=== PATIENT | male | born 1965 | race Caucasian/White ===

== ENCOUNTER → 2016-11-12 | Outpatient (CLI) | payer OTHER ==
--- NOTE | 2016-11-13 09:31 | ECHOF ---
Referral Reason:I10 htn MEASUREMENTS -------- HEIGHT: 162.6 cm WEIGHT: 111.1 kg BP: RVIDd: 3.1 cm (< 3.3) IVSd: 1.2 cm (0.6 - 1.1) LVIDd: 4.4 cm (3.9 - 5.3) LVPWd: 1.3 cm (0.6 - 1.1) IVSs: 1.5 cm LVIDs: 3.4 cm LVPWs: 1.6 cm Ao Diam: 4.1 cm (2.0 - 3.7) AV Cusp: 2.2 cm (1.5 - 2.6) LA Diam: 3.4 cm (2.7 - 3.8) MV EXCURSION: 19.197 mm (> 18.000) MV EF SLOPE: 109 mm/s (70 - 150) EPSS: 0.2 cm MV E Brian: 0.43 m/s MV DecT: 274 ms MV A Brian: 0.58 m/s MV E/A Ratio: 0.74 RAP: 5.00 mmHg RVSP: 23.93 mmHg FINDINGS -------- Sinus rhythm. This was a technically good study. There is mild concentric left ventricular hypertrophy. Overall left ventricular systolic function is low-normal with, an EF between 50 - 55 %. The right ventricle is normal in size. Normal LA size by volume 22+/-6 ml/m2. The right atrial size is normal. There is mild aortic valve sclerosis. There is no evidence of aortic regurgitation. Mild mitral annular calcification present. Mild mitral regurgitation is present. Mild tricuspid regurgitation present. Right ventricular systolic pressure is normal at < 35 mmHg. There is no evidence of pulmonary hypertension. There is no pulmonic regurgitation present. The aortic root size is normal. There is no pericardial effusion. CONCLUSIONS -------- 1. There is mild concentric left ventricular hypertrophy. 2. Overall left ventricular systolic function is low-normal with, an EF between 50 - 55 %. 3. There is mild aortic valve sclerosis. 4. Mild mitral annular calcification present. 5. Mild mitral regurgitation is present. 6. Mild tricuspid regurgitation present. 7. Right ventricular systolic pressure is normal at < 35 mmHg. 8. There is no evidence of pulmonary hypertension. UPHOLSTERY CUTTER: Danay Bateman RDCS
== END | disposition home or self-care (01) ==
LOC: RADECHMAIN 13:11
PROVIDERS: ATTEND Family Medicine
DX: I08.3 Combined rheumatic disorders of mitral, aortic and tricuspid valves (principal)
CPT/HCPCS: 93306

== ENCOUNTER 2021-09-03 12:08 | Emergency (ER) | payer BC, OTHER ==
[2021-09-03] MEDS ORDERED: SODIUM CHLORIDE 0.9% 1,000 ML IV STA ×2 (12:14→14:37)
--- NOTE | 2021-09-03 12:22 | ED ---
General Adult HPI - General Chief complaint: Dizziness Stated complaint: near syncope Source: patient, RN notes reviewed Mode of arrival: ambulatory - History of Present Illness Initial comments: 55-year-old male presents to the emergency department for evaluation of difficulty breathing and dizzines. Patient's symptoms began suddenly while seated at the bedside of his . Patient states he felt as if he couldn't catch his breath and became dizzy and lightheaded. Patient was able to ambulate to a cot with assistance. Denies chest pain or tightness. States his only past medical history is hypertension. Patient denies fever, chills, headache, chest pain, abdominal pain, nausea, vomiting, diarrhea, dysuria, or hematuria. - Related Data Home Medications Medication Instructions Recorded Confirmed Losartan/Hydrochlorothiazide 1 tab PO HS 09/03/21 09/03/21 [Losartan-Hctz 100-12.5 mg Tab] amLODIPine [Norvasc] 5 mg PO DAILY 09/03/21 09/03/21 Previous Rx's Medication Instructions Recorded Dexamethasone [Decadron] 6 mg PO DAILY #10 tablet 09/03/21 Allergies Allergy/AdvReac Type Severity Reaction Status Date / Time Penicillins Allergy Anaphylaxis Verified 09/03/21 12:47 Review of Systems ROS Statement: Those systems with pertinent positive or pertinent negative responses have been documented in the HPI. ROS Other: All systems not noted in ROS Statement are negative. Past Medical History Past Medical History: Hypertension Additional Past Surgical History / Comment(s): Back surg 1991 Smoking Status: Never smoker Past Alcohol Use History: None Reported Past Drug Use History: None Reported General Exam Limitations: no limitations General appearance: alert, anxious, other (Well-developed, well-nourished male who appears anxious at this time. Initial heart rate 118, respirations 24, blood pressure 96/70, pulse ox 99% on room air.) ENT exam: Present: normal exam, normal oropharynx, mucous membranes moist Respiratory exam: Present: normal lung sounds bilaterally, other (Patient is tachypneic with shallow breathing. ). Absent: respiratory distress, wheezes, rales, rhonchi, stridor Cardiovascular Exam: Present: normal rhythm, tachycardia GI/Abdominal exam: Present: soft, normal bowel sounds. Absent: distended, tenderness, guarding, rebound, rigid Neurological exam: Present: alert, oriented X3 Psychiatric exam: Present: anxious Skin exam: Present: warm, dry, intact, pallor Course Vital Signs 09/03/21 09/03/21 12:11 13:53 Temperature 97.9 F 100.4 F H Pulse Rate 118 H 108 H Respiratory 24 18 Rate Blood Pressure 96/70 122/78 O2 Sat by Pulse 99 98 Oximetry - Reevaluation(s) Reevaluation #1: 09/03/21 12:20 Patient was seated at the bedside of his spouse who was a patient in the emergency department when he suddenly became short of breath feeling like he couldn't catch his breath and became dizzy and lightheaded. He was assisted to a cot and was able to ambulate without weakness or unsteadiness. Patient was taken to a room, placed on continuous pulse ox. Oxygen saturation was 99% on room air, however patient is tachycardic with a heart rate in the 110s. Patient was coached to slow his breathing as he is tachypneic, tachycardic, and appears panicky. 09/03/21 13:41 Lab called with a critical d-dimer of 1.04. CT PE study ordered. Accounting for his mildly impaired renal function, patient will be given a reduced dose of IV contrast. 09/03/21 14:45 CT for PE was negative. Patient continues to rest comfortably without any evidence of difficulty breathing. He is no longer on oxygen via nasal cannula. Did discuss risks and benefits of monoclonal antibody infusion. He is agreeable to this plan. 09/03/21 16:30 Patient tolerated the infusion without difficulty. Resting comfortably in verbalizes readiness for discharge. Repeat set of vitals: temperature 99.3, respirations 18, heart rate 98, blood pressure 128/82, pulse ox 95% on room air. Medical Decision Making - Medical Decision Making This is a 55-year-old male who presents to the emergency department for evaluation of sudden onset difficulty breathing and dizziness. Upon exam, patient appears anxious and is tachypneic and tachycardic. Room air oxygen sat is 99%. Patient insists he has no chest pain, but was experiencing shortness of breath. Respirations were shallow and rapid. He did appear pale. IV was inserted and patient was given fluids. EKG was obtained and shows sinus rhythm. Laboratory studies were reviewed. Patient is mildly dehydrated with a sodium of 132 and chloride 95. BUN 27 and creatinine 1.34. Given 1 liter of IV fluids. D-dimer is elevated at 1.04. CT angiogram chest was obtained to rule out PE. PE study was negative, however does show patchy infiltrates compatible with pneumonia. Patient is found to be Covid +. Upon recheck of vitals, patient is found to be febrile therefore was given acetaminophen. Oxygen saturation is 94% or greater on room air. Patient is a candidate for the monoclonal antibody infusion. Risks and benefits were discussed. Patient is agreeable to infusion which she tolerated well. He will be discharged home to follow up with his primary care provider via telephone or video conference. Return parameters were discussed in detail. Patient verbalizes understanding and agrees with this plan. Patient's care was discussed with my attending Dr. Guerrero. - Lab Data Result diagrams: 09/03/21 12:47 09/03/21 12:47 Lab Results 09/03/21 09/03/21 09/03/21 Range/Units 12:47 12:47 12:47 WBC 4.1 (3.8-10.6) k/uL RBC 5.33 (4.30-5.90) m/uL Hgb 15.8 (13.0-17.5) gm/dL Hct 44.9 (39.0-53.0) % MCV 84.3 (80.0-100.0) fL MCH 29.6 (25.0-35.0) pg MCHC 35.1 (31.0-37.0) g/dL RDW 12.8 (11.5-15.5) % Plt Count 148 L (150-450) k/uL MPV 7.5 Neutrophils % 68 % Lymphocytes % 20 % Monocytes % 10 % Eosinophils % 0 % Basophils % 1 % Neutrophils # 2.8 (1.3-7.7) k/uL Lymphocytes # 0.8 L (1.0-4.8) k/uL Monocytes # 0.4 (0-1.0) k/uL Eosinophils # 0.0 (0-0.7) k/uL Basophils # 0.0 (0-0.2) k/uL D-Dimer (<0.60) mg/L FEU Sodium 132 L (137-145) mmol/L Potassium 3.9 (3.5-5.1) mmol/L Chloride 95 L (98-107) mmol/L Carbon Dioxide 25 (22-30) mmol/L Anion Gap 12 mmol/L BUN 27 H (9-20) mg/dL Creatinine 1.34 H (0.66-1.25) mg/dL Est GFR (CKD-EPI)AfAm 68 (>60 ml/min/1.73 sqM) Est GFR (CKD-EPI)NonAf 59 (>60 ml/min/1.73 sqM) Glucose 101 H (74-99) mg/dL Calcium 9.0 (8.4-10.2) mg/dL Total Bilirubin 0.6 (0.2-1.3) mg/dL AST 50 (17-59) U/L ALT 48 (4-49) U/L Alkaline Phosphatase 90 (38-126) U/L Troponin I <0.012 (0.000-0.034) ng/mL Total Protein 7.4 (6.3-8.2) g/dL Albumin 4.4 (3.5-5.0) g/dL Coronavirus (PCR) (Not Detectd) 09/03/21 09/03/21 Range/Units 12:47 12:54 WBC (3.8-10.6) k/uL RBC (4.30-5.90) m/uL Hgb (13.0-17.5) gm/dL Hct (39.0-53.0) % MCV (80.0-100.0) fL MCH (25.0-35.0) pg MCHC (31.0-37.0) g/dL RDW (11.5-15.5) % Plt Count (150-450) k/uL MPV Neutrophils % % Lymphocytes % % Monocytes % % Eosinophils % % Basophils % % Neutrophils # (1.3-7.7) k/uL Lymphocytes # (1.0-4.8) k/uL Monocytes # (0-1.0) k/uL Eosinophils # (0-0.7) k/uL Basophils # (0-0.2) k/uL D-Dimer 1.04 H (<0.60) mg/L FEU Sodium (137-145) mmol/L Potassium (3.5-5.1) mmol/L Chloride (98-107) mmol/L Carbon Dioxide (22-30) mmol/L Anion Gap mmol/L BUN (9-20) mg/dL Creatinine (0.66-1.25) mg/dL Est GFR (CKD-EPI)AfAm (>60 ml/min/1.73 sqM) Est GFR (CKD-EPI)NonAf (>60 ml/min/1.73 sqM) Glucose (74-99) mg/dL Calcium (8.4-10.2) mg/dL Total Bilirubin (0.2-1.3) mg/dL AST (17-59) U/L ALT (4-49) U/L Alkaline Phosphatase (38-126) U/L Troponin I (0.000-0.034) ng/mL Total Protein (6.3-8.2) g/dL Albumin (3.5-5.0) g/dL Coronavirus (PCR) Detected A (Not Detectd) - EKG Data EKG shows normal: sinus rhythm Rate: normal EKG Comments: EKG was obtained that 1229 and shows normal sinus rhythm. Ventricular rate 99, GA interval 158, QRS duration 106, QT/QTC 350/449. - Radiology Data Radiology results: report reviewed, image reviewed Two-view chest x-ray was obtained. Report was reviewed in its entirety i mpression Dr. Roberts is no acute pulmonary process. CT chest [place] for PE was obtained. Report was reviewed in its entirety. Impression per Dr. Patel is no evidence for pulmonary embolism at this time. Scanty patchy infiltrates compatible with pneumonia. Disposition Clinical Impression: Pneumonia due to COVID-19 virus, Fever, Dehydration Disposition: HOME SELF-CARE Condition: Stable Instructions (If sedation given, give patient instructions): Coronavirus Di 2018 (COVID-19) Additional Instructions: Alternate Tylenol and Motrin as needed for fever or discomfort. Increase intake of fluids. Take steroid as directed You should quarantine for 10 days from symptom onset Follow-up with your PCP via telephone or video visit in the next 24-48 hours. Return to the emergency department with any new, worsening, or concerning sympto ms. Prescriptions: Dexamethasone [Decadron] 6 mg PO DAILY #10 tablet Is patient prescribed a controlled substance at d/c from ED?: No Referrals: Mago Murphy MD [Primary Care Provider] - 1-2 days Time of Disposition: 16:45
--- NOTE | 2021-09-03 12:58 | XR ---
EXAMINATION TYPE: XR chest 2V DATE OF EXAM: 09/03/2021 COMPARISON: None INDICATION: Short of breath dizzy TECHNIQUE: Frontal and lateral views of the chest are obtained. FINDINGS: The heart size is normal. The pulmonary vasculature is normal. The lungs are clear. IMPRESSION: 1. No acute pulmonary process.
[2021-09-03 13:03] LABS: Basophils % (A) 1 %; Eosinophils % (A) 0 %; HCT 44.9 % (39.0-53.0); HGB 15.8 gm/dL (13.0-17.5); Lymphocytes # (A) 0.8 k/uL (1.0-4.8); Lymphocytes % (A) 20 %; MCH 29.6 pg (25.0-35.0); MCHC 35.1 g/dL (31.0-37.0); MCV 84.3 fL (80.0-100.0); Mean Platelet Volume 7.5; Monocytes # (A) 0.4 k/uL (0-1.0); Monocytes % (A) 10 %; Neutrophils # (A) 2.8 k/uL (1.3-7.7); Neutrophils % (A) 68 %; Platelet Count 148 k/uL (150-450); RBC 5.33 m/uL (4.30-5.90); RDW 12.8 % (11.5-15.5); WBC 4.1 k/uL (3.8-10.6)
[2021-09-03 13:24] LABS: Albumin 4.4 g/dL (3.5-5.0); Potassium 3.9 mmol/L (3.5-5.1); Total Bilirubin 0.6 mg/dL (0.2-1.3); Total Protein 7.4 g/dL (6.3-8.2)
[2021-09-03 13:55] VITALS: BP 122/78; PULSE 108; RESP 18; TEMP 100.4
[2021-09-03] MEDS ORDERED: ACETAMINOPHEN TAB 500 MG TAB PO STA (14:00)
--- NOTE | 2021-09-03 14:26 | CT ---
EXAMINATION TYPE: CT chest angio for PE DATE OF EXAM: 09/03/2021 COMPARISON: None HISTORY: Syncopal episode with sudden onset fever. CT DLP: 576.5 mGycm CONTRAST: CT chest with contrast and 3D reconstruction with MIP imaging is performed with IV Contrast, patient injected with 80 mL of Isovue 370. Contrast-enhanced CT of the chest was performed through the course of the pulmonary arteries with alicia g and mediastinal window settings submitted. 3D reconstruction with MIP imaging was also performed. PULMONARY ARTERIES: The pulmonary arteries and their major tributaries are patent. I do not see dada dence for sizable filling defect to suggest pulmonary embolic process. LUNGS: Scattered patchy infiltrates compatible with pneumonia. No evidence for atelectasis. No pulm onary nodule or mass is detected. No pleural effusion. MEDIASTINUM: Thoracic aorta is of normal caliber,however, evaluation is limited given timing of the contrast bolus. If there is concern for thoracic aortic pathology consider JILL. Correlate clinicall y . The heart is not enlarged. No evidence for mediastinal mass. No mediastinal lymph nodes greater than 1cm. HILAR STRUCTURES: No evidence for mass. No hilar lymph nodes greater than 1 cm. UPPER ABDOMEN: No significant abnormality is seen. IMPRESSION: 1. No evidence for Pulmonary embolism at this time. 2.Scattered patchy infiltrates compatible with pneumonia.
[2021-09-03] MEDS ORDERED: DEXAMETHASONE SOD PHOSPHATE 10 MG/ML 1 ML VIAL IVP STA (14:38)
[2021-09-03] MEDS ORDERED: CASIRIVIMAB (REGN10933) (EUA) 600 MG, IMDEVIMAB (REGN10987) (EUA) 600 MG in SODIUM CHLO... IVPB ONE (15:15)
[2021-09-03] MEDS ORDERED: SODIUM CHLORIDE 0.9% 50 ML IVPB ONE (15:15)
== END 2021-09-03 16:54 | disposition home or self-care (01) ==
LOC: EC 12:08
DX: U07.1 COVID-19 (principal); J12.82 Pneumonia due to coronavirus disease 2019; R50.9 Fever, unspecified; E86.0 Dehydration; I10 Essential (primary) hypertension; Z88.0 Allergy status to penicillin
CPT/HCPCS: 99285; 96374; 36415; 93005; 85379; 80053; 84484; 85025; 87635; 71046; 71275; J1100; Q9967; Q0243

== ENCOUNTER → 2022-02-04 | Outpatient (CLI) | payer BC, OTHER ==
--- NOTE | 2022-02-04 19:01 | US ---
EXAMINATION TYPE: US carotid duplex BILAT DATE OF EXAM: 02/04/2022 COMPARISON: NONE CLINICAL HISTORY: I10 HIGH BLOOD PRESSURE. High blood pressure. Prior smoker. EXAM MEASUREMENTS: RIGHT: Peak Systolic Velocity (PSV) cm/sec ----- Right CCA: 96.3 ----- Right ICA: 93.0 bulb measurement ----- Right ECA: 105.8 ICA/CCA ratio: 1.0 RIGHT: End Diastole cm/sec ----- Right CCA: 22.6 ----- Right ICA: 22.6 ----- Right ECA: 19.0 LEFT: Peak Systolic Velocity (PSV) cm/sec ----- Left CCA: 91.9 ----- Left ICA: 91.9 bulb measurement ----- Left ECA: 112.1 ICA/CCA ratio: 1.0 LEFT: End Diastole cm/sec ----- Left CCA: 25.9 ----- Left ICA: 30.3 ----- Left ECA: 21.5 VERTEBRALS (direction of flow): Right Vertebral: Antegrade Left Vertebral: Antegrade Rhythm: Normal Intimal thickening seen bilaterally. No elevated velocities at this time. Ratio includes bulb measure ments bilaterally- which were the higher velocities in comparison to the ICA velocities. Incidental finding: Isoechoic area seen within the mid left thyroid lobe: 2.0 x 1.6 x 1.6 cm. IMPRESSION: 1. No significant flow-limiting stenosis. 2. Mild intimal thickening through the carotid bifurcations. 3. Left thyroid nodule. Additional workup with thyroid ultrasound is recommended. Criteria for Assigning % of Stenosis / Diameter reduction (Estimation based on the indirect measurements of the internal carotid artery velocities (ICA PSV). 1. Normal (no stenosis)=ICA PSV < 125 cm/s: ratio < 2.0: ICA EDV<40 cm/s. 2. Less than 50% stenosis=ICA PSV < 125 cm/s: ratio < 2.0: ICA EDV<40 cm/s. 3. 50 to 69% stenosis=ICA PSV of 125 to 230 cm/s: ration 2.0 ? 4.0: ICA EDV 40-100 cm/s. 4. Greater than 70% stenosis to near occlusion= ICA PSV > 230 cm/s: ratio > 4.0: ICA EDV > 100 cm/s. 5. Near occlusion= ICA PSV velocities may be low or undetectable: variable ratio and ICA EDV. 6. Total occlusion=unable to detect flow.
--- NOTE | 2022-02-05 10:27 | CA ---
Transthoracic Echo Report Name: Pérez Snow Age: 56 Gender: M : 1965 Exam Date: 02/04/2022 16:05 Exam Location: [facility] Ht (in): 71 Wt (lb): 250 Ordering Physician: Mago Murphy MD Attending/Referring Phys: [employer] Driver Evelyn Beltran RDCS Procedure CPT: Indications: R91.1 SOLITARY PULMONARY NODULE Cardiac Hx: Technical Quality: Fair Contrast 1: Total Dose (mL): Contrast 2: Total Dose (mL): MEASUREMENTS (Male / Female) Normal Values 2D ECHO LV Diastolic Diameter PLAX 3.7 cm 4.2 - 5.9 / 3.9 - 5.3 cm LV Systolic Diameter PLAX 2.6 cm IVS Diastolic Thickness 1.4 cm 0.6 - 1.0 / 0.6 - 0.9 cm LVPW Diastolic Thickness 1.3 cm 0.6 - 1.0 / 0.6 - 0.9 cm LV Relative Wall Thickness 0.7 RV Internal Dim ED PLAX 3.2 cm LA Systolic Diameter LX 2.9 cm 3.0 - 4.0 / 2.7 - 3.8 cm LA Volume 40.6 cm??? 18 - 58 / 22 - 52 cm??? M-MODE Aortic Root Diameter MM 3.8 cm MV E Point Septal Separation 0.5 cm AV Cusp Separation MM 2.7 cm DOPPLER AV Peak Velocity 114.6 cm/s AV Peak Gradient 5.3 mmHg MV Area PHT 2.9 cm??? Mitral E Point Velocity 77.7 cm/s Mitral A Point Velocity 69.6 cm/s Mitral E to A Ratio 1.1 MV Deceleration Time 259.7 ms TR Peak Velocity 197.4 cm/s TR Peak Gradient 15.6 mmHg Right Ventricular Systolic Press 20.6 mmHg FINDINGS Left Ventricle Left ventricular ejection fraction is estimated at 60-65 %. Left ventricular cavity size normal. Moderate concentric left ventricular hypertrophy. Right Ventricle Normal right ventricular size and function. Right ventricular systolic pressure within normal limits. Right Atrium Normal right atrial size. Left Atrium Normal left atrial size. No evidence for an atrial septal defect. Mitral Valve Structurally normal mitral valve. No mitral stenosis, regurgitation or prolapse. Aortic Valve Trileaflet aortic valve. Trace aortic regurgitation. Tricuspid Valve Structurally normal tricuspid valve. Trace to mild tricuspid regurgitation. Pulmonic Valve Trace pulmonic regurgitation. Pericardium Normal pericardium. Aorta Mildly dilated aortic annulus. CONCLUSIONS Left ventricular hypertrophy with preserved LV systolic function Previewed by: Dr. Nicolas Alvaraod MD (Electronically Signed) Final Date: 05 Feb 2022 10:26
== END | disposition home or self-care (01) ==
LOC: RADUSWWP 15:16
PROVIDERS: ATTEND Family Medicine
DX: E04.1 Nontoxic single thyroid nodule (principal); I77.89 Other specified disorders of arteries and arterioles; I11.9 Hypertensive heart disease without heart failure; Z87.891 Personal history of nicotine dependence
CPT/HCPCS: 93306; 93880

== ENCOUNTER → 2022-02-24 | Outpatient (CLI) | payer BC ==
--- NOTE | 2022-02-25 16:12 | US ---
EXAMINATION TYPE: US thyroid st tissue head/neck DATE OF EXAM: 02/24/2022 COMPARISON: NONE CLINICAL HISTORY: E04.1 NONTOXIC SINGLE THYROID NODULE. thyroid nodules GLAND SIZE: Right Lobe: 5.5 x 1.5 x 2.3 Overall Parenchyma: homogenous Left Lobe: 5.1 x 1.9 x 1.9 Overall Parenchyma: homogeneous Isthmus Thickness: cm NODULES RIGHT: subcentimeter nodules seen. LEFT: # of nodules measured on left: 2 1. 2.1 1.3x 1.4cm mid mid, solid or almost completely solid, hypoechoic nodule, which is wider than tall, with smooth margins, without echogenic foci. Prior size: no prior 2. 1.0 .6 x 1.1cm lower , solid or almost completely solid, hypoechoic nodule, which is wider than tall, with smooth margins, without echogenic foci. Prior size: no prior ISTHMUS: # of nodules measured in the isthmus: 0 Bilateral neck scanned, no evidence of lymphadenopathy. IMPRESSION: 1. Moderately suspicious nodule left lobe thyroid, fine needle aspiration recommended. 2017 ACR TI-RADS LEVEL: TR-RADS 4 - Moderately Suspicious: Follow if > 1 cm, FNA if > 1.5 cm *Highest TI-RADS level nodule reported
== END | disposition home or self-care (01) ==
LOC: RADUSWWP 16:21
PROVIDERS: ATTEND Internal Medicine
DX: E04.2 Nontoxic multinodular goiter (principal)
CPT/HCPCS: 76536

== ENCOUNTER 2022-03-19 09:23 | Day surgery (SDC) | payer BC ==
[2022-03-19] MEDS ORDERED: ALPRAZolam 0.5 MG TAB PO PRN (09:49)
[2022-03-19 10:01] VITALS: RESP 16; TEMP 97.7
[2022-03-19 11:39] VITALS: BP 121/70; PULSE 88
--- NOTE | 2022-03-19 14:07 | US ---
EXAMINATION TYPE: US FNA thyroid first lesion DATE OF EXAM: 03/19/2022 COMPARISON: NONE HISTORY: Thyroid nodules in the left. Maximal barrier technique was utilized. After informed consent, skin overlying the midpole thyroid n odule was localized with ultrasound and the overlying skin prepped and draped. Ultrasound was utilize d using sterile technique. Lidocaine was used for local anesthesia. Five passes with a 25-gauge need le were made into the nodule and aspirated specimen was submitted to cytology. Using similar technique the smaller lower pole thyroid nodule was subsequently sampled, 5 passes with 25-gauge needle were made under ultrasound guidance, ultrasound technique. No immediate complication . Following the procedure hemostasis achieved. The patient discharged in stable condition. IMPRESSION: STATUS POST ULTRASOUND GUIDED FINE NEEDLE ASPIRATION OF 2 DISCRETE THYROID NODULES, PATHO LOGY IS PENDING. THIS PROCEDURE WAS PERFORMED BY THE UNDERSIGNED.
== END 2022-03-19 11:30 | disposition home or self-care (01) ==
LOC: RADPROMAIN 09:23
PROVIDERS: ATTEND Internal Medicine
DX: E04.1 Nontoxic single thyroid nodule (principal)
CPT/HCPCS: 10005; 10006; 88173; 88305

== ENCOUNTER 2023-07-09 07:16 | Day surgery (SDC) | payer OTHER ==
[~2023-07-09 07:16] MED LIST: LACTATED RINGERS 1,000 ML IV SCH; LIDOCAINE 1% (10MG/ML) FOR IV START INTRADERMA PRN
[2023-07-09 07:51] VITALS: RESP 16; TEMP 97.6
[2023-07-09] MEDS ORDERED: LIDOCAINE 1% INJ 10MG/ML (20 ML MDV) ONE (08:22)
[2023-07-09] MEDS ORDERED: PROPOFOL 10 MG/ML 20 ML VIAL IV ONE (08:22)
--- NOTE | 2023-07-09 08:37 | P.PCN ---
Date of Procedure: 07/09/23 Procedure(s) Performed: BRIEF HISTORY: Patient is a 57-year-old pleasant white male scheduled for an elective colonoscopy as a part of screening for colon cancer. PROCEDURE PERFORMED: Colonoscopy with biopsy. PREOPERATIVE DIAGNOSIS: Screening for colon cancer. IV sedation per Anesthesia. PROCEDURE: After informed consent was obtained, the patient, was brought into the endoscopy unit. IV sedation was administered by Anesthesia under continuous monitoring. Digital rectal examination was normal. Initially the Olympus CF-160 flexible video colonoscope was then inserted in the rectum, gradually advanced into the cecum without any difficulty. Careful examination was performed as the scope was gradually being withdrawn. Ileocecal valve and the appendiceal orifice were visualized and appeared normal. Prep was excellent. Mucosa of the cecum, normal. In the ascending colon there was a 2 mm polyp that was removed by cold biopsy. In the transverse colon there was a 3 mm polyp that was removed by cold biopsy. Rest of the ascending colon, transverse colon, descending colon, sigmoid colon, and rectum appeared normal. Retroflexion was performed in the rectum and grade 2 internal hemorrhoids were seen. The patient tolerated the procedure well. IMPRESSION: 2 mm ascending colon polyp status post cold biopsy 3 mm transverse colon polyp status post cold biopsy Grade 2 internal hemorrhoids RECOMMENDATIONS: Findings of this examination were discussed with the patient as well his family. He was advised to follow with the biopsy results. If the biopsy result adenoma he can have a repeat colonoscopy in 5 years..
[2023-07-09 09:18] VITALS: BP 131/80; PULSE 91
== END 2023-07-09 09:10 | disposition home or self-care (01) ==
LOC: ORWHC2ENDO 07:16
PROVIDERS: ATTEND Internal Medicine Gastroenterology
DX: Z12.11 Encounter for screening for malignant neoplasm of colon (principal); K64.1 Second degree hemorrhoids; D12.2 Benign neoplasm of ascending colon; I10 Essential (primary) hypertension; I51.7 Cardiomegaly; G47.33 Obstructive sleep apnea (adult) (pediatric); Z79.899 Other long term (current) drug therapy
CPT/HCPCS: 88305; 45380; J2001; J2704

== ENCOUNTER → 2023-12-29 | Outpatient (CLI) | payer OTHER ==
--- NOTE | 2023-12-29 21:59 | XR ---
EXAMINATION TYPE: XR cervical spine w flex/ext DATE OF EXAM: 12/29/2023 COMPARISON: None HISTORY: Neck pain TECHNIQUE: 7 views cervical spine including flexion and extension lateral views. FINDINGS: There is severe right foraminal stenosis C3-4 mild foraminal narrowing is present on the ri ght at C5-6 and C6-7. Moderate narrowing C5-6 and C6-7 on the left is present. Prevertebral space is normal. There is narrowing of disc height C5-6 C6-7. Some anterior vertebral lokesh dy spurring is present at these levels. Posterior vertebral body spurring is present. Between flexion and extension and neutral views vertebral body alignment appears preserved. Posterior spinal lamella r line is intact. Odontoid as visualized appears unremarkable. IMPRESSION: 1. Degenerative disc changes C5-6 C6-7. 2. Bilateral foraminal stenosis appears greatest on the right at C3-4. MRI can be performed as clinic ally indicated.
== END | disposition home or self-care (01) ==
LOC: RADXRMAIN 09:53
PROVIDERS: ATTEND Family Medicine
DX: M50.322 Other cervical disc degeneration at C5-C6 level (principal); M50.323 Other cervical disc degeneration at C6-C7 level; M99.71 Connective tissue and disc stenosis of intervertebral foramina of cervical region
CPT/HCPCS: 72052

== ENCOUNTER → 2024-02-19 | Outpatient (CLI) | payer OTHER ==
--- NOTE | 2024-02-19 15:10 | MR ---
EXAMINATION TYPE: MR cspine/lspine wo con DATE OF EXAM: 02/19/2024 11:56 AM CLINICAL INDICATION:Male, 58 years old with history of M48.02 SPINAL STENOSIS, CERVICAL [id number] ; LOCATED WITHIN [facility], COMPARISON: 02/02/2024 TECHNIQUE: Multi planar, multi sequence imaging was performed utilizing: T1-weighted, T2-weighted, a nd turbo inversion recovery imaging of the cervical and lumbar spine. MR contrast: IV Contrast: cc , None. FINDINGS: CERVICAL: Alignment: The cervical vertebral bodies have preserved heights. Alignment is within normal limits gi anaid patient positioning. Bones: Bone signal is within normal limits. No abnormal bone marrow edema on inversion recovery seque nces. Cord: The spinal cord is unremarkable with regards to their signal intensity and morphology. Discs: C2-C3: No significant disc pathology. The spinal canal is patent. No neural foraminal stenosis. C3-C4: No significant disc pathology. The spinal canal is patent. Bilateral facet and uncovertebral joint arthropathy are present with moderate to severe right and mild left neural foraminal stenosis. C4-C5: A disc osteophyte complex is present which minimally narrows the ventral subarachnoid space. No neural foraminal stenosis. C5-C6: A disc osteophyte complex is present which minimally narrows the ventral subarachnoid space. Bilateral facet and uncovertebral joint arthropathy are present with mild to moderate right and mild left neural foraminal stenosis. C6-C7: A disc osteophyte complex is present which minimally narrows the ventral subarachnoid space. Bilateral facet and uncovertebral joint arthropathy are present with moderate bilateral neural jane inal stenosis. C7-T1: No significant disc pathology. The spinal canal is patent. No neural foraminal stenosis. Other: None. LUMBAR: Alignment: The lumbar vertebral bodies have preserved heights and alignment. Cord: The conus medullaris and the distal spinal cord appear unremarkable with regards to their signa l intensity and morphology. Bones/Discs: Multilevel disc degeneration changes with osteophyte formation, disc space narrowing, Sc hmorl's nodes, and facet joint arthropathy. No abnormal inversion recovery signal to suggest bony dewayne ma. Multilevel disc desiccation is present. T12-L1: No evidence of significant spinal canal stenosis or neural foraminal stenosis. L1-L2: No evidence of significant spinal canal stenosis or neural foraminal stenosis. L2-L3: Disc bulge with superimposed left central disc protrusion and facet joint arthropathy result i n severe spinal canal and patent neural foramina. L3-L4: Disc bulge and facet joint arthropathy result in moderate spinal canal and moderate bilateral neural foraminal stenosis. L4-L5: Disc bulge and facet joint arthropathy result in mild spinal canal and moderate bilateral neur al foraminal stenosis. L5-S1: Central osteophyte posteriorly which closely approximates the forming left nerve roots. No sig nificant spinal canal or neural foraminal stenosis in the remainder of the visualized levels. Other findings: None. IMPRESSION: 1. L2-L3 disc bulge with superimposed central/left central protrusion with resultant severe spinal c anal stenosis. The neural foramen are patent at this level. 2. L5-S1 osteophyte/disc bulge which closely approximates/ displaces the forming left nerve at S1-S2 3. Degeneration changes in the cervical spine worse at C3-C4 with moderate to severe right neural fo raminal stenosis. 4. No significant spinal canal stenosis and the cervical spine.
== END | disposition home or self-care (01) ==
LOC: RADMRIMAIN 10:35
PROVIDERS: ATTEND Orthopaedic Surgery
DX: M99.71 Connective tissue and disc stenosis of intervertebral foramina of cervical region (principal); M47.812 Spondylosis without myelopathy or radiculopathy, cervical region; M48.02 Spinal stenosis, cervical region; M47.816 Spondylosis without myelopathy or radiculopathy, lumbar region; M51.26 Other intervertebral disc displacement, lumbar region; M51.36 Other intervertebral disc degeneration, lumbar region; M48.061 Spinal stenosis, lumbar region without neurogenic claudication; M25.78 Osteophyte, vertebrae; M62.81 Muscle weakness (generalized)
CPT/HCPCS: 72141; 72148